=== PATIENT | female | born 1985 | race Caucasian/White ===

== ENCOUNTER 2019-03-24 18:17 | Emergency (ER) | payer BC ==
[2019-03-24 18:39] VITALS: BP 127/70
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
== END 2019-03-24 19:31 | disposition home or self-care (01) ==
LOC: UCCORT 18:17
DX: H61.23 Impacted cerumen, bilateral (principal); F17.210 Nicotine dependence, cigarettes, uncomplicated
CPT/HCPCS: 99203; G0463

== ENCOUNTER 2019-07-07 13:50 | Emergency (ER) | payer BC ==
[2019-07-07 14:57] VITALS: BP 117/66
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
== END 2019-07-07 17:06 | disposition home or self-care (01) ==
LOC: UCCORT 13:50
DX: T21.21XA Burn of second degree of chest wall, initial encounter (principal); N61.0 Mastitis without abscess; F32.9 Major depressive disorder, single episode, unspecified; F17.210 Nicotine dependence, cigarettes, uncomplicated; Z79.899 Other long term (current) drug therapy
CPT/HCPCS: 99212; G0463